=== PATIENT | female | born 1945 | race Caucasian/White ===

== ENCOUNTER 2017-02-02 09:07 | Emergency (ER) | payer MEDICARE ==
[2017-02-02 09:22] VITALS: BP 123/82
[2017-02-02] MEDS ORDERED: Famotidine 20 MG Tab PO ONE (09:31)
[2017-02-02] MEDS ORDERED: diphenhydrAMINE 50 MG Cap PO ONE (09:32)
--- NOTE | 2017-02-02 09:32 | EDM.PDOC ---
ED HPI Skin/Rash - General Chief Complaint: Skin Complaint Stated Complaint: ALLERGIG REATION Time Seen by Provider: 02/02/17 09:18 Source: Reports: Patient History Limitations: Reports: No limitations - History of Present Illness INITIAL COMMENTS - FREE TEXT/NARRATIVE: The patient presents with a rash. She says this started a few days ago. She is unsure what she may be reacting to. She did take a glucosamine tablet and it seemed like after that she had some hives start. She has no other new meds, detergents, soaps or lotions. She has been cleaning a new construction home that has lots of dust. She has no shortness of breath. She thought that maybe her tongue was swollen this morning. She has urticaria to both arms, both legs and her trunk. She also says her ears itch. Timing: Reports: still present Location, Skin: Reports: generalized Quality: Reports: Itching Severity: moderate Known Identified Source: no Associated Symptoms: Reports: no other symptoms - Related Data Allergies Allergy/AdvReac Type Severity Reaction Status Date / Time codeine Allergy Rash Verified 02/02/17 09:22 Home Meds: Ambulatory Orders Medication Instructions Recorded Confirmed Prednisone [IJD: predniSONE] 40 mg PO WITHBREAKFAST #10 tab 02/02/17 ED ROS GENERAL - Review of Systems Review Of Systems: See Below Constitutional: Reports: no symptoms HEENT: Reports: Other (Tongue swelling?) Respiratory: Reports: No Symptoms Cardiovascular: Reports: No symptoms Endocrine: Reports: no symptoms GI/Abdominal: Reports: No symptoms : Reports: no symptoms Musculoskeletal: Reports: no symptoms Skin: Reports: urticaria Neurological: Reports: No Symptoms Psychiatric: Reports: No symptoms ED EXAM, SKIN/RASH Exam: See Below Exam Limited By: No limitations General Appearance: alert, no apparent distress Ears: normal external exam Nose: normal inspection Throat/Mouth: Other (No tongue edema) Head: atraumatic, normocephalic Neck: normal inspection Respiratory/Chest: no respiratory distress, lungs clear, normal breath sounds Cardiovascular: regular rate, rhythm, no edema, no murmur GI/Abdominal: soft, non tender, no organomegaly Back Exam: normal inspection Extremities: normal inspection Neurological: alert, oriented, no motor/sensory deficits Skin: Rash (Generalized urticarial rash) Location, Skin: generalized Course - Vital Signs Last Recorded V/S: Last Vital Signs Temp 97.2 F 03/19/17 09:18 Pulse 88 02/02/17 09:18 Resp 16 02/02/17 09:18 BP 123/82 02/02/17 09:18 Pulse Ox 100 02/02/17 09:18 - Re-Assessments/Exams Free Text/Narrative Re-Assessment/Exam: 02/02/17 09:31 I have ordered prednisone 40mg by mouth, pepcid 20mg by mouth and benadryl 50mg by mouth. I will give her a prescription for more prendisone. Departure - Departure Time of Disposition: 09:45 Disposition: Home, Self-Care 01 Condition: good Clinical Impression: Rash due to allergy Prescriptions: Prednisone [IJD: predniSONE] 40 mg PO WITHBREAKFAST #10 tab Referrals: Alana Triplett [employer] [Primary Care Provider] - 3 Days (If not better) Forms: ED Department Discharge Additional Instructions: Take the prednisone daily for 5 days. Take pepcid 20mg daily for 1 week. Take benadryl 50mg every 6 hours as needed for any itching. Please return if you are worse.
[2017-02-02] MEDS ORDERED: predniSONE 10 MG Tab PO ONE (09:48)
[2017-02-03] MEDS ORDERED: predniSONE 20 MG Tab PO ONE (09:31)
== END 2017-02-02 10:00 | disposition home or self-care (01) ==
LOC: JD.ED 09:07
DX: L50.0 Allergic urticaria (principal); Z88.5 Allergy status to narcotic agent
CPT/HCPCS: 99283; A9270

== ENCOUNTER 2018-07-14 06:53 | Day surgery (SDC) | payer MEDICARE ==
[~2018-07-14 06:53] MED LIST: Lactated Ringers 1,000 ML IV SCH; Lidocaine 1%/Sod Bicarbonate in NS 8.4% 1 ML Syringe IDERM PRN; Sodium Chloride 0.9% 10 ML Syringe FLUSH PRN
--- NOTE | 2018-07-14 07:19 | PCM.PREANE ---
Preanesthetic Assessment - Anesthesia/Transfusion/Family Hx Anesthesia History: Prior Anesthesia Without Reaction Family History of Anesthesia Reaction: No Transfusion History: No Prior Transfusion(s) - Review of Systems General: No Symptoms Pulmonary: No Symptoms Cardiovascular: No Symptoms Gastrointestinal: No Symptoms Neurological: No Symptoms Other: Reports: Thyroid Problems (hypo) - Physical Assessment NPO Status Date: 07/13/18 NPO Status Time: 00:00 Pulse: 73 O2 Sat by Pulse Oximetry: 99 Respiratory Rate: 16 Blood Pressure: 141/68 Temperature: 37.2 C Height: 1.65 m Weight: 72 kg ASA Class: 2 Mental Status: Alert & Oriented x3 Airway Class: Mallampati = 1 Dentition: Reports: [place](s) Thyro-Mental Finger Breadths: 3 Mouth Opening Finger Breadths: 3 ROM/Head Extension: Full Lungs: Clear to Auscultation, Normal Respiratory Effort Cardiovascular: Regular Rate, Regular Rhythm, No Murmurs - Allergies Allergies/Adverse Reactions: Allergies Allergy/AdvReac Type Severity Reaction Status Date / Time codeine Allergy Rash Verified 02/02/17 09:22 - Blood Blood Available: No Product(s) Available: None - Anesthesia Plan Pre-Op Medication Ordered: None - Acknowledgements Anesthesia Type Planned: MAC Pt an Appropriate Candidate for the Planned Anesthesia: Yes Alternatives and Risks of Anesthesia Discussed w Pt/Guardian: Yes Pt/Guardian Understands and Agrees with Anesthesia Plan: Yes PreAnesthesia Questionnaire Other HEENT History: CERUMEN IMPACTION, ORAL LESION, ORAL SURGERY Cardiovascular History: Reports: High Cholesterol, Hypertension Other OB/BYN History: abnormal breast tissue, vaginal wall prolapse, breast lumpectomy hysterectomy and appy Other Musculoskeletal History: superfiscal foreign body of hand right, rt hip pain, osteopenia tremor Endocrine/Metabolic History: Reports: Hyperthyroidism Dermatologic History: Reports: Other (See Below) Other Dermatologic History: cold sores, skin rash - Past Surgical History HEENT Surgical History: Reports: Oral Surgery GI Surgical History: Reports: Appendectomy, Colonoscopy - SUBSTANCE USE Smoking Status *Q: Former Smoker Other Tobacco Use Within Last Twelve Months: 45 YRS AGO Second Hand Smoke Exposure: No Days Per Week of Alcohol Use: 0 Number of Drinks Per Day: 0 Total Drinks Per Week: 0 Recreational Drug Use History: No - HOME MEDS Home Medications: Home Meds Aspirin [Halfprin] 81 mg PO DAILY 07/13/18 [History] Cholecalciferol (Vitamin D3) [Vitamin D3] 1 tab PO DAILY 07/13/18 [History] Estrogens, Conjugated [Premarin] 1 tab PO DAILY 07/13/18 [History] Levothyroxine [Synthroid] 1 tab PO DAILY 07/13/18 [History] Valsartan/Hydrochlorothiazide [Valsartan-Hctz 160-12.5 mg Tab] 1 tab PO DAILY [History] amLODIPine [Norvasc] 1 tab PO DAILY 07/13/18 [History] valACYclovir [Valtrex] 1 tab PO DAILY 07/13/18 [History] - CURRENT (IN HOUSE) MEDS Current Meds: Current Medications Lactated Ringer's (Ringers, Lactated) 1,000 mls @ 125 mls/hr IV ASDIRECTED BALDOMERO Stop: 07/14/18 23:00 Lidocaine/Sodium Bicarbonate (Buffered Lidocaine 1% In Ns 8.4%) 0.25 ml IDERM ONETIME PRN PRN Reason: Prior to IV Start Stop: 07/14/18 18:00 Sodium Chloride (Saline Flush) 10 ml FLUSH ASDIRECTED PRN PRN Reason: Keep Vein Open Stop: 07/14/18 18:00
--- NOTE | 2018-07-14 07:22 | PCM.PREANE ---
Preanesthetic Assessment - Allergies Allergies/Adverse Reactions: Allergies Allergy/AdvReac Type Severity Reaction Status Date / Time codeine Allergy Rash Verified 02/02/17 09:22 PreAnesthesia Questionnaire Other HEENT History: CERUMEN IMPACTION, ORAL LESION, ORAL SURGERY Cardiovascular History: Reports: High Cholesterol, Hypertension Other OB/BYN History: abnormal breast tissue, vaginal wall prolapse, breast lumpectomy hysterectomy and appy Other Musculoskeletal History: superfiscal foreign body of hand right, rt hip pain, osteopenia tremor Endocrine/Metabolic History: Reports: Hyperthyroidism Dermatologic History: Reports: Other (See Below) Other Dermatologic History: cold sores, skin rash - Past Surgical History HEENT Surgical History: Reports: Oral Surgery GI Surgical History: Reports: Appendectomy, Colonoscopy - SUBSTANCE USE Smoking Status *Q: Former Smoker Other Tobacco Use Within Last Twelve Months: 45 YRS AGO Recreational Drug Use History: No - HOME MEDS Home Medications: Home Meds Aspirin [Halfprin] 81 mg PO DAILY 07/13/18 [History] Cholecalciferol (Vitamin D3) [Vitamin D3] 1 tab PO DAILY 07/13/18 [History] Estrogens, Conjugated [Premarin] 1 tab PO DAILY 07/13/18 [History] Levothyroxine [Synthroid] 1 tab PO DAILY 07/13/18 [History] Valsartan/Hydrochlorothiazide [Valsartan-Hctz 160-12.5 mg Tab] 1 tab PO DAILY [History] amLODIPine [Norvasc] 1 tab PO DAILY 07/13/18 [History] valACYclovir [Valtrex] 1 tab PO DAILY 07/13/18 [History] - CURRENT (IN HOUSE) MEDS Current Meds: Current Medications Lactated Ringer's (Ringers, Lactated) 1,000 mls @ 125 mls/hr IV ASDIRECTED BALDOMERO Stop: 07/14/18 23:00 Lidocaine/Sodium Bicarbonate (Buffered Lidocaine 1% In Ns 8.4%) 0.25 ml IDERM ONETIME PRN PRN Reason: Prior to IV Start Stop: 07/14/18 18:00 Sodium Chloride (Saline Flush) 10 ml FLUSH ASDIRECTED PRN PRN Reason: Keep Vein Open Stop: 07/14/18 18:00
[2018-07-14] MEDS ORDERED: Propofol 200 MG/20 ML SDV ONE ×2 (07:27→08:21)
[2018-07-14] MEDS ORDERED: fentaNYL 100 MCG/2 ML SDV ONE (07:27)
[2018-07-14] MEDS ORDERED: Lidocaine 1% 4 ML ONE (07:28)
--- NOTE | 2018-07-14 08:43 | PCM.OPNOTE ---
- General Post-Op/Procedure Note Date of Surgery/Procedure: 07/14/18 Operative Procedure(s): colonoscopy, screening Findings: Normal colonoscopy. No biopsies obtained. Pre Op Diagnosis: screening colonoscopy, average risk Post-Op Diagnosis: screening colonoscopy, average risk Anesthesia Technique: MAC Primary Surgeon: William Garcia Anesthesia Provider: Darnell Earl EBLara in mLs: 0 Complications: None Condition: Good Free Text/Narrative:: Indications for surgery: The patient is 73 yo female, average risk for colorectal cancer, here for repeat screening colonoscopy. She was consented for colonoscopy with possible biopsy. Indications, risks, and benefits were discussed with the patient in detail. Description of procedure: After surgical consent was verified, the patient was brought to the main OR. A surgical time-out was performed to verify proper patient and proper procedure. Anesthesia performed monitored anesthesia care. A digital rectal exam was performed, which was normal. The colonoscope was inserted into the anus and advanced through the colon to the cecum. Location of the cecum was confirmed by presence of the appendiceal orifice (somewhat more subtle given the patient's prior appendectomy) and by presence of the ileocecal valve. The scope was then withdrawn, with inspection of the colonic mucosa.Retroflexion was performed in the rectum. The remainder of the colon and rectum was normal. Withdrawal time was 8 minutes. There was no blood loss. The patient tolerated the procedure well, was brought out of anesthesia, and transported to the PACU in stable condition. William Garcia M.D., F.A.C.S. General Surgery Pager: [phone]
[2018-07-14 10:01] VITALS: BP 115/55
== END 2018-07-14 09:50 | disposition home or self-care (01) ==
LOC: JD.SDS 06:53
PROVIDERS: ATTEND Student in an Organized Health Care Education/Training Program
DX: Z12.11 Encounter for screening for malignant neoplasm of colon (principal); I10 Essential (primary) hypertension; E03.9 Hypothyroidism, unspecified; E78.00 Pure hypercholesterolemia, unspecified; E78.5 Hyperlipidemia, unspecified; M85.80 Other specified disorders of bone density and structure, unspecified site; Z79.82 Long term (current) use of aspirin; Z79.899 Other long term (current) drug therapy; Z87.891 Personal history of nicotine dependence
CPT/HCPCS: G0121; J2704; J3010; J7120; J2001

== ENCOUNTER 2021-02-01 07:21 | Day surgery (SDC) | payer MEDICARE ==
[~2021-02-01 07:21] MED LIST changes: -Lactated Ringers 1,000 ML IV SCH; +Lidocaine 1% PF 2 ML SDV INJECT SCH; -Lidocaine 1%/Sod Bicarbonate in NS 8.4% 1 ML Syringe IDERM PRN; -Sodium Chloride 0.9% 10 ML Syringe FLUSH PRN
[2021-02-01] MEDS: Polymyxin B/Trimethoprim 10 ML Bottle EYERT SCH ×4 (07:25→08:40)
[2021-02-01] MEDS: Brimonidine 0.2% Ophth Soln 5 ML Bottle EYERT SCH ×4 (07:29→08:40)
[2021-02-01] MEDS: Phenylephrine 2.5% Ophth Soln 2 ML Bot EYERT SCH ×5 (07:32→08:14)
[2021-02-01] MEDS: Tropicamide 1% Ophth Soln 15 ML Bottle EYERT SCH ×4 (07:35→08:02)
--- NOTE | 2021-02-01 07:40 | PCM.PREANE ---
Preanesthetic Assessment - Procedure Proposed Procedure: Rt eye cataract - Anesthesia/Transfusion/Family Hx Anesthesia History: Prior Anesthesia Without Reaction Transfusion History: No Prior Transfusion(s) - Review of Systems General: No Symptoms Pulmonary: No Symptoms Cardiovascular: No Symptoms Gastrointestinal: No Symptoms Neurological: No Symptoms Other: Reports: None, Thyroid Problems - Physical Assessment NPO Status Date: 01/31/21 NPO Status Time: 20:00 Vital Signs: 139/71 75 16 RR 99% 98.6F ASA Class: 2 Mental Status: Alert & Oriented x3 Airway Class: Mallampati = 1 Dentition: Reports: Normal Dentition, [place](s) Thyro-Mental Finger Breadths: 3 Mouth Opening Finger Breadths: 3 ROM/Head Extension: Full Lungs: Clear to Auscultation, Normal Respiratory Effort Cardiovascular: Regular Rate, Regular Rhythm - Allergies Allergies/Adverse Reactions: Allergies Allergy/AdvReac Type Severity Reaction Status Date / Time No Known Allergies Allergy Verified 01/31/21 12:47 - Acknowledgements Anesthesia Type Planned: MAC Pt an Appropriate Candidate for the Planned Anesthesia: Yes Alternatives and Risks of Anesthesia Discussed w Pt/Guardian: Yes Pt/Guardian Understands and Agrees with Anesthesia Plan: Yes PreAnesthesia Questionnaire Other HEENT History: CERUMEN IMPACTION, ORAL LESION, ORAL SURGERY Cardiovascular History: Reports: High Cholesterol, Hypertension Other OB/BYN History: abnormal breast tissue, vaginal wall prolapse, breast lumpectomy hysterectomy and appy Other Musculoskeletal History: superfiscal foreign body of hand right, rt hip pain, osteopenia tremor Endocrine/Metabolic History: Reports: Hyperthyroidism Dermatologic History: Reports: Other (See Below) Other Dermatologic History: cold sores, skin rash - Past Surgical History HEENT Surgical History: Reports: Oral Surgery GI Surgical History: Reports: Appendectomy, Colonoscopy - HOME MEDS Home Medications: Home Meds Aspirin [Adult Low Dose Aspirin EC] 81 mg PO DAILY 01/31/21 [History] Carboxymethylcellulose Sodium [Artificial Tears] 1 drop EYEBOTH ASDIRECTED PRN 01/31/21 [History] Estrogens, Conjugated [Premarin] 0.625 mg PO DAILY 01/31/21 [History] Levothyroxine [Synthroid] 88 mcg PO DAILY 01/31/21 [History] Valsartan/Hydrochlorothiazide [Valsartan-Hctz 160-12.5 mg Tab] 1 tab PO DAILY 01/31/21 [History] amLODIPine Besylate [Norvasc] 2.5 mg PO DAILY 01/31/21 [History] atorvaSTATin [Lipitor] 20 mg PO DAILY 01/31/21 [History] - CURRENT (IN HOUSE) MEDS Current Meds: Current Medications Brimonidine Tartrate (Brimonidine 0.2% Ophth Soln 5 Ml Bottle) 0 ml EYERT ASDIRECTED BALDOMERO Stop: 02/01/21 18:00 Last Admin: 02/01/21 07:29 Dose: 1 drop Documented by: Cefuroxime Sodium (Cefuroxime 10 Mg/Ml Syringe) 0 mg EYERT ASDIRECTED BALDOMERO Stop: 02/01/21 18:00 Lidocaine HCl (Lidocaine 1% Pf 2 Ml Sdv) 0 ml INJECT ASDIRECTED BALDOMERO Stop: 02/01/21 18:00 Phenylephrine HCl (Phenylephrine 2.5% Ophth Soln 2 Ml Bot) 0 ml EYERT ASDIRECTED BALDOMERO Stop: 02/01/21 18:00 Last Admin: 02/01/21 07:32 Dose: 1 drop Documented by: Pilocarpine HCl (Pilocarpine 4% Ophth Soln 15 Ml Bot) 0 ml EYERT ASDIRECTED BALDOMERO Stop: 02/01/21 18:00 Polymyxin/Trimethoprim Sulfate (Polymyxin B/Trimethoprim 10 Ml Bottle) 0 ml EYERT ASDIRECTED BALDOMERO Stop: 02/01/21 18:00 Last Admin: 02/01/21 07:25 Dose: 1 drop Documented by: Tetracaine HCl (Tetracaine Hcl/Pf 0.5% 4 Ml Bottle) 0 ml EYEBOTH ASDIRECTED BALDOMERO Stop: 02/01/21 18:00 Tropicamide (Tropicamide 1% Ophth Soln 15 Ml Bottle) 0 ml EYERT ASDIRECTED BALDOMERO Stop: 02/01/21 18:00 Last Admin: 02/01/21 07:35 Dose: 1 drop Documented by:
[2021-02-01] MEDS: Tetracaine HCl/PF 0.5% 4 ML Bottle EYEBOTH SCH ×2 (08:09→08:26)
[2021-02-01] MEDS: Cefuroxime 10 MG/ML SYRINGE EYERT SCH ×2 (08:36→08:40)
[2021-02-01] MEDS: Pilocarpine 4% Ophth Soln 15 ML Bot EYERT SCH ×2 (08:36→08:40)
--- NOTE | 2021-02-01 08:46 | PCM48HPAN ---
Post Anesthesia Note - EVALUATION WITHIN 48HRS OF ANESTHETIC Vital Signs in Normal Range: Yes Patient Participated in Evaluation: Yes Respiratory Function Stable: Yes Airway Patent: Yes Cardiovascular Function Stable: Yes Hydration Status Stable: Yes Pain Control Satisfactory: Yes Nausea and Vomiting Control Satisfactory: Yes Mental Status Recovered: Yes Vital Signs: 118/70, 71, 16, 98%
[2021-02-01 08:56] VITALS: BP 124/66; PULSE 66
== END 2021-02-01 08:51 | disposition home or self-care (01) ==
LOC: JD.SDS 07:21
PROVIDERS: ATTEND Ophthalmology
DX: H25.813 Combined forms of age-related cataract, bilateral (principal); H35.373 Puckering of macula, bilateral; H35.341 Macular cyst, hole, or pseudohole, right eye; H02.834 Dermatochalasis of left upper eyelid; H02.831 Dermatochalasis of right upper eyelid; H16.223 Keratoconjunctivitis sicca, not specified as Sjogren's, bilateral; H16.103 Unspecified superficial keratitis, bilateral; I10 Essential (primary) hypertension; E78.00 Pure hypercholesterolemia, unspecified; E05.90 Thyrotoxicosis, unspecified without thyrotoxic crisis or storm; Z87.891 Personal history of nicotine dependence; Z79.82 Long term (current) use of aspirin; Z79.890 Hormone replacement therapy; Z79.899 Other long term (current) drug therapy
CPT/HCPCS: 66984; C1780; J0697

== ENCOUNTER 2021-04-03 11:45 | Day surgery (SDC) | payer MEDICARE ==
[~2021-04-03 11:45] MED LIST changes: +Cefuroxime 10 MG/ML SYRINGE EYELF SCH; +Pilocarpine 4% Ophth Soln 15 ML Bot EYELF SCH
[2021-04-03] MEDS: Polymyxin B/Trimethoprim 10 ML Bottle EYELF SCH ×3 (11:57→13:23)
--- NOTE | 2021-04-03 12:03 | PCM.PREANE ---
Preanesthetic Assessment - Procedure Proposed Procedure: Left eye cataract extraction with IOL - Anesthesia/Transfusion/Family Hx Anesthesia History: Prior Anesthesia Without Reaction Family History of Anesthesia Reaction: No Transfusion History: No Prior Transfusion(s) - Review of Systems General: No Symptoms Pulmonary: No Symptoms Cardiovascular: Dyspnea on Exertion Gastrointestinal: No Symptoms Neurological: No Symptoms Other: Reports: Thyroid Problems (hypothyroid) - Physical Assessment NPO Status Date: 04/02/21 NPO Status Time: 00:00 Height: 1.65 m Weight: 78.471 kg ASA Class: 2 Mental Status: Alert & Oriented x3 Airway Class: Mallampati = 1 Dentition: Reports: [place](s) Thyro-Mental Finger Breadths: 3 Mouth Opening Finger Breadths: 3 ROM/Head Extension: Full Lungs: Clear to Auscultation, Normal Respiratory Effort Cardiovascular: Regular Rate, Regular Rhythm - Allergies Allergies/Adverse Reactions: Allergies Allergy/AdvReac Type Severity Reaction Status Date / Time No Known Allergies Allergy Verified 03/30/21 12:17 - Blood Blood Available: No Product(s) Available: None - Anesthesia Plan Pre-Op Medication Ordered: None - Acknowledgements Anesthesia Type Planned: MAC Pt an Appropriate Candidate for the Planned Anesthesia: Yes Alternatives and Risks of Anesthesia Discussed w Pt/Guardian: Yes Pt/Guardian Understands and Agrees with Anesthesia Plan: Yes PreAnesthesia Questionnaire Other HEENT History: CERUMEN IMPACTION, ORAL LESION, ORAL SURGERY Cardiovascular History: Reports: High Cholesterol, Hypertension Other OB/BYN History: abnormal breast tissue, vaginal wall prolapse, breast lumpectomy hysterectomy and appy Other Musculoskeletal History: superfiscal foreign body of hand right, rt hip pain, osteopenia tremor Endocrine/Metabolic History: Reports: Hyperthyroidism Dermatologic History: Reports: Other (See Below) Other Dermatologic History: cold sores, skin rash - Past Surgical History HEENT Surgical History: Reports: Oral Surgery GI Surgical History: Reports: Appendectomy, Colonoscopy - SUBSTANCE USE Tobacco Use Status *Q: Former Tobacco User Tobacco Use Within Last Twelve Months: No Second Hand Smoke Exposure: No Days Per Week of Alcohol Use: 1 Number of Drinks Per Day: 0 Total Drinks Per Week: 0 Recreational Drug Use History: No - HOME MEDS Home Medications: Home Meds Aspirin [Adult Low Dose Aspirin EC] 81 mg PO DAILY 01/31/21 [History] Carboxymethylcellulose Sodium [Artificial Tears] 1 drop EYEBOTH ASDIRECTED PRN 01/31/21 [History] Estrogens, Conjugated [Premarin] 0.625 mg PO DAILY 01/31/21 [History] Levothyroxine [Synthroid] 88 mcg PO DAILY 01/31/21 [History] Valsartan/Hydrochlorothiazide [Valsartan-Hctz 160-12.5 mg Tab] 1 tab PO DAILY 01/31/21 [History] amLODIPine Besylate [Norvasc] 2.5 mg PO DAILY 01/31/21 [History] atorvaSTATin [Lipitor] 20 mg PO DAILY 01/31/21 [History] - CURRENT (IN HOUSE) MEDS Current Meds: Current Medications Brimonidine Tartrate (Brimonidine 0.2% Ophth Soln 5 Ml Bottle) 0 ml EYELF ASDIRECTED BALDOMERO Stop: 04/03/21 18:00 Cefuroxime Sodium (Cefuroxime 10 Mg/Ml Syringe) 0 mg EYELF ASDIRECTED BALDOMERO Stop: 04/03/21 18:00 Lidocaine HCl (Lidocaine 1% Pf 2 Ml Sdv) 0 ml INJECT ASDIRECTED BALDOMERO Stop: 04/03/21 18:00 Phenylephrine HCl (Phenylephrine 2.5% Ophth Soln 2 Ml Bot) 0 ml EYELF ASDIRECTED BALDOMERO Stop: 04/03/21 18:00 Pilocarpine HCl (Pilocarpine 4% Ophth Soln 15 Ml Bot) 0 ml EYELF ASDIRECTED BALDOMERO Stop: 04/03/21 18:00 Polymyxin/Trimethoprim Sulfate (Polymyxin B/Trimethoprim 10 Ml Bottle) 0 ml EYELF ASDIRECTED BALDOMERO Stop: 04/03/21 18:00 Tetracaine HCl (Tetracaine Hcl/Pf 0.5% 4 Ml Bottle) 0 ml EYEBOTH ASDIRECTED BALDOMERO Stop: 04/03/21 18:00 Tropicamide (Tropicamide 1% Ophth Soln 15 Ml Bottle) 0 ml EYELF ASDIRECTED BALDOMERO Stop: 04/03/21 18:00
[2021-04-03] MEDS: Brimonidine 0.2% Ophth Soln 5 ML Bottle EYELF SCH ×3 (12:11→13:23)
[2021-04-03] MEDS: Phenylephrine 2.5% Ophth Soln 2 ML Bot EYELF SCH ×5 (12:16→13:03)
[2021-04-03] MEDS: Tropicamide 1% Ophth Soln 15 ML Bottle EYELF SCH ×4 (12:20→12:50)
[2021-04-03] MEDS: Tetracaine HCl/PF 0.5% 4 ML Bottle EYEBOTH SCH ×2 (12:54→13:10)
--- NOTE | 2021-04-03 13:25 | PCM48HPAN ---
Post Anesthesia Note - EVALUATION WITHIN 48HRS OF ANESTHETIC Vital Signs in Normal Range: Yes Patient Participated in Evaluation: Yes Respiratory Function Stable: Yes Airway Patent: Yes Cardiovascular Function Stable: Yes Hydration Status Stable: Yes Pain Control Satisfactory: Yes Nausea and Vomiting Control Satisfactory: Yes Mental Status Recovered: Yes
[2021-04-03 13:36] VITALS: BP 145/63; PULSE 68
== END 2021-04-03 13:34 | disposition home or self-care (01) ==
LOC: JD.SDS 11:45
PROVIDERS: ATTEND Ophthalmology
DX: H25.812 Combined forms of age-related cataract, left eye (principal); I10 Essential (primary) hypertension; E78.00 Pure hypercholesterolemia, unspecified; E03.9 Hypothyroidism, unspecified; Z79.82 Long term (current) use of aspirin; Z79.890 Hormone replacement therapy; Z79.899 Other long term (current) drug therapy; Z87.891 Personal history of nicotine dependence; Z96.1 Presence of intraocular lens
CPT/HCPCS: 66984; J0697; C1780